=== PATIENT | female | born 1985 | race Caucasian/White ===

== ENCOUNTER 2019-08-11 16:24 | Inpatient (IN) | payer OTHER ==
[2019-08-11 16:46] LABS: Glucose,Whole Blood 132 mg/dL (75-99)
[2019-08-11] MEDS ORDERED: OXYTOCIN 10 UNIT/ML 1 ML VIAL IM PRN (17:28)
[2019-08-11] MEDS ORDERED: TERBUTALINE 1 MG/ML VIAL SQ PRN (17:28)
[2019-08-11] MEDS ORDERED: CARBOPROST TROMETHAMINE 250 MCG/ML 1 ML AMP IM PRN (17:28)
[2019-08-11] MEDS ORDERED: METHYLERGONOVINE 0.2 MG/ML 1 ML AMP IM PRN (17:28)
[2019-08-11] MEDS ORDERED: LIDOCAINE 0.5% (PF) 5 MG/ML (50 ML SDV) SQ PRN (17:28)
--- NOTE | 2019-08-11 17:28 | US ---
EXAMINATION TYPE: US OB >= 14 wk fetus DATE OF EXAM: 08/11/2019 COMPARISON: None CLINICAL HISTORY: DOM, no care, ? heart tones No care, unknown dates, ruptur e of membranes approx 2 days ago TECHNIQUE: Transabdominal (TA) GESTATIONAL AGE / DATING Physician Established: Not established Dates by LMP: Unknown Dates by First Scan: No prior Dates by Current Scan: (35 weeks/2 days) EDC: 09/13/2019 SURVEY IUP: Single PLACENTA: Fundal PREVIA: No Previa TYRON: 0.8 cm Oligohydramnios BIOMETRY PRESENTATION: Vertex BPD: 9.0 cm 36 weeks / 4 days HC: 31.4 cm 35 weeks / 2 days AC: 30.3 cm 34 weeks / 2 days FL: 7.1 cm 36 weeks / 2 days ESTIMATED WEIGHT IN GRAMS: 2605 grams ESTIMATED WEIGHT IN LBS/OZ: 5 lbs. 12 oz. HC/AC: 1.04 Normal FL/AC: 23 Normal HEART RATE: 149 bpm RHYTHM: Normal Very limited exam due to low TYRON and position. Dr. Keating present during exam IMPRESSION: The heart rate is 149. There is oligohydramnios. Limited exam. Cephalic presentation.
[2019-08-11] MEDS ORDERED: OXYTOCIN 30 UNITS/500 ML NS 30 UNIT in SALINE 1 500ML.BAG IV SCH (17:30)
[2019-08-11 17:37] LABS: Appearance,Urine Clear (Clear); Bilirubin,Urine Negative (Negative); Blood,Urine Negative (Negative); Color,Urine Yellow; Glucose,Urine (UA) 4+ (Negative); Leukocyte Esterase,Urine Negative (Negative); Mucus,Urine Rare /hpf; Nitrite,Urine Negative (Negative); PH, Urine 6.5 (5.0-8.0); Protein,Urine 1+ (Negative); RBC,Urine 1 /hpf (0-5); Specific Gravity,Urine 1.024 (1.001-1.035); Urobilinogen,Urine <2.0 mg/dL (<2.0); WBC,Urine 6 /hpf (0-5)
[2019-08-11 17:38] LABS: Ketones,Urine 2+ (Negative)
[2019-08-11 17:40] LABS: Amphetamine Screen,Urine Not Detected (NotDetected); Barbiturate Screen,Urine Not Detected (NotDetected); Benzodiazepines Screen,Urine Not Detected (NotDetected); Cocaine Screen,Urine Not Detected (NotDetected); Methadone Screen, Urine Not Detected (NotDetected); Opiate Screen,Urine Not Detected (NotDetected); Oxycodone Screen, Urine Not Detected (NotDetected); Phencyclidine Screen,Urine Not Detected (NotDetected); Tricyclic Antidepressant,Urine Not Detected (NotDetected); Urn Cannabinoid Scrn Not Detected (NotDetected)
--- NOTE | 2019-08-11 17:42 | P.HPOB ---
History of Present Illness H&P Date: 08/11/19 Chief Complaint: labor for 48 hours this is a 34-year-old 1 para 0 woman who presents at 39-5/7 weeks gestation reporting labor for the past 48 hours. She states she has a due date of 08/13/2019 based on a 6 week ultrasound. She is accompanied by her who has been attending her labor throughout the weekend. She had onset of irregular but strong contractions sometime on 08/09/2019. She reports a gush of fluid sometime in the evening of 08/09/2019. she has had some intermittent contractions however nothing over the last 1 Day therefore they decided to come into the hospital. She reports the fluid may be slightly green tinged at this time. She did attempt pushing at some point on Monday for a couple of hours but became exhausted and had no progress therefore stopped. She denies any vaginal bleeding. She had care early in the and 1 visit at 20 weeks and a high risk clinic at [facility]. She reports she is high risk secondary to type 1 diabetes. She has been treating herself with Humalog and Lantus insulin and reports her blood sugars are between 80 and 140 and her usual hemoglobin A1c prior to is 5.5. She has not checked her blood sugar nor has she had much to eat for the last 48 hours. Upon her initial evaluation her abdomen is noted to be gravid and misshapen. Heart tones are not obtained by external monitoring. Bedside ultrasound shows a grossly enlarged bladder, making initial visualization of infant's very difficult.. The patient reports that she last was able to empty her bladder over 24 hours ago. Latham catheter is placed and 2300 mL's of concentrated urine was rapidly obtained. With drainage of the bladder ultrasound confirms positive heart tones and an infant in the vertex presentation, head extremely low. Abdominal circumference and femur length measurements are consistent with 34-36 week gestation. There is no amniotic fluid and the placenta appears calcified in fundal position. Pelvic exam is performed and the patient is complete with the vertex in the +2 station. scalp electrode is placed with heart tones in the 150s to 160s with minimal variability and no decelerations. She is not actively el on the monitor. Other notable finding on physical exam is tense bilateral significant lower extremity edema. There is no erythema or asymmetry noted. She reports the swelling has been steadily increasing over the last several days. Other then type 1 diabetes she denies any significant other past medical or surgical history. She denies alcohol or drug use during the . 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. Review of Systems All systems: negative Medications and Allergies Allergies Allergy/AdvReac Type Severity Reaction Status Date / Time No Known Allergies Allergy Verified 08/11/19 16:38 Exam Intake and Output 08/11/19 08/11/19 08/11/19 06:59 14:59 22:59 Other: Weight 110.223 kg see HPI Results Abnormal Lab Results - Last 24 Hours (Table) 08/11/19 Range/Units 16:44 POC Glucose (mg/dL) 132 H (75-99) mg/dL Assessment and Plan (1) History of inadequate care Current Visit: Yes Status: Acute Code(s): O09.30 - SUPRVSN OF PREG W INSUFFICIENT ANTENAT CARE, UNSP TRIMESTER SNOMED Code(s): 528900532 (2) Prolonged rupture of membranes Current Visit: Yes Status: Acute Code(s): O42.90 - JOSE ROM, 7TH0 BETW RUPT & ONST LABR, UNSP WEEKS OF GEST SNOMED Code(s): 60824248 (3) Type 1 diabetes mellitus affecting , antepartum Current Visit: Yes Status: Acute Code(s): O24.019 - PRE-EXIST TYPE 1 DIABETES, IN , UNSP TRIMESTER SNOMED Code(s): 906033732 (4) Prolonged labor Current Visit: Yes Status: Acute Code(s): O63.9 - LONG LABOR, UNSPECIFIED SNOMED Code(s): 36858704 (5) Meconium in amniotic fluid Current Visit: Yes Status: Acute Code(s): P96.83 - MECONIUM STAINING SNOMED Code(s): 098192913 (6) Bladder distention Current Visit: Yes Status: Acute Code(s): N32.89 - OTHER SPECIFIED DISORDERS OF BLADDER SNOMED Code(s): 83530001 Plan: this is a 34-year-old 1 para 0 woman with a stated due date of 08/13/2019 who presents with greater than 48 hours in labor. It appears that she had the an obstructed bladder with inability to void. With Latham catheter she has greater than 2 L of urine out and the vertex is now in the 2+ station. Once IV access is established and the patient is transported to a labor room we will initiate Pitocin. Hopefully she will be able to have a spontaneous vaginal delivery. heart tones are category 2 at this time. The pediatric staff has been notified and will be in attendance for delivery. All labs are currently pending. The patient and her are counseled regarding distinct possibility of infection for both mother and infant, possibility of uterine atony and hemorrhage and probable admission into the special care nursery. All questions are answered.
[2019-08-11 17:48] LABS: Basophils % (A) 0 %; Eosinophils # (A) 0.1 k/uL (0-0.7); Eosinophils % (A) 0 %; HCT 35.6 % (34.0-46.0); HGB 12.2 gm/dL (11.4-16.0); Lymphocytes % (A) 4 %; MCH 28.7 pg (25.0-35.0); MCHC 34.3 g/dL (31.0-37.0); MCV 83.7 fL (80.0-100.0); Mean Platelet Volume 7.7; Monocytes # (A) 1.4 k/uL (0-1.0); Monocytes % (A) 6 %; Neutrophils % (A) 90 %; Platelet Count 340 k/uL (150-450); RBC 4.26 m/uL (3.80-5.40); WBC 24.5 k/uL (3.8-10.6)
[2019-08-11 17:58] LABS: Albumin 3.4 g/dL (3.5-5.0); Calcium 8.6 mg/dL (8.4-10.2); Potassium 4.5 mmol/L (3.5-5.1); Total Bilirubin 1.2 mg/dL (0.2-1.3); Total Protein 5.7 g/dL (6.3-8.2)
[2019-08-11] MEDS: LACTATED RINGERS 1,000 ML IV SCH ×3 (18:00→20:28)
[2019-08-11] MEDS ORDERED: MISOPROSTOL 200 MCG TAB RECTAL STA (18:02)
--- NOTE | 2019-08-11 19:31 | P.PROBDLV ---
Vaginal Delivery Note - . Vaginal Delivery Note: findings: Male in the vertex left occiput anterior position with Apgars of 5 at 1 minute and 9 at 5 minutes. Weight pending. Foul smelling purulent amniotic fluid at time of delivery. First-degree perineal laceration. Intact, meconium-stained placenta. EBL 250 mL's. Delivery summary: This is a 34-year-old 1 para 0 woman with an estimated due date of 08/13/2019 per her report who presents with no care since 20 weeks and having been in labor for greater than 48 hours, ruptured membranes for greater than 48 hours. Please see the admission history and physical for details. She had significant bladder distention and her bladder was drained for 2300 mL of concentrated orange urine while in triage. She was then on pelvic exam found to be completely dilated at the 2+ station. She was having no regular contraction activity however. heart tones were in the 150s with minimal variability but no decelerations. After some discussion about the situation the patient and the father of the baby agreed to Pitocin augmentation. Despite Pitocin augmentation ultimately up to 4 mU/m she maintained a very irregular and dispersed contraction pattern. She contracted every 7-10 minutes. With contractions she did have excellent maternal effort with pushing. Because of the prolonged labor, history of diabetes and dysfunctional contraction pattern additional staff were in the room prepared for possible shoulder dystocia. She eventually did push to and was placed in the Harini position. With additional maternal effort the head delivered from the left occiput anterior position with a compound presentation of the posterior hand by the head. There was a mild shoulder dystocia but this was relieved in the Harini position with delivery of the posterior arm. The rest the then rapidly delivered onto the field accompanied by a gush of foul-smelling brown fluid. The infant was immediately taken to the warmer after the cord was clamped and cut. Apgars were 5 at 1 minute and 9 at 5 minutes. The placenta was then delivered after a rapid third stage of labor and was noted to be meconium-stained. Cultures were taken from the placenta. Cord blood was taken as was a sample of the umbilical cord for gases. The perineum was inspected and a first-degree perineal laceration was noted. This was infused with lidocaine and repaired with a [id number] of 3-0 Vicryl suture. The uterus was massaged and initially was firm however she did develop some mild atony. This was managed with Pitocin intravenously as well as a single dose of IM Methergine. EBL was approximately 250 mL's. The was taken rapidly to the special care nursery accompanied by the father of the baby. Delivery and anticipated treatment course for the infant was reviewed with the patient at the bedside. All counts were correct.
[2019-08-11] MEDS ORDERED: HYDROCORTISONE 2.5% RECTAL CREAM 30 GM TUBE RECTAL PRN (19:37)
[2019-08-11] MEDS ORDERED: SIMETHICONE 80 MG CHEWABLE PO PRN (19:37)
[2019-08-11] MEDS ORDERED: WITCH HAZEL 1 EACH MED..PAD TOPICAL PRN (19:37)
[2019-08-11] MEDS ORDERED: ACETAMINOPHEN TAB 325 MG TAB PO PRN (19:37)
[2019-08-11] MEDS ORDERED: BENZOCAINE/MENTHOL SPRAY 1 GM/SPRAY AEROSOL TOPICAL PRN (19:37)
[2019-08-11] MEDS ORDERED: IBUPROFEN 600 MG TAB PO PRN (19:37)
[2019-08-11] MEDS ORDERED: ZOLPIDEM 5 MG TAB PO PRN (19:37)
[2019-08-11] MEDS ORDERED: diphenhydrAMINE 25 MG CAP PO PRN (19:37)
[2019-08-11] MEDS ORDERED: LANOLIN CREAM 5 GM TUBE TOPICAL PRN (19:37)
[2019-08-11] MEDS ORDERED: diphenhydrAMINE 50 MG/ML 1 ML VIAL IVP PRN ×2 (19:37)
[2019-08-11] MEDS ORDERED: diphenhydrAMINE 50 MG CAP PO PRN (19:37)
[2019-08-11] MEDS ORDERED: OXYTOCIN 20 UNITS/1000 ML NS 1,000 ML IV SCH (19:45)
[2019-08-11 20:10] LABS: Glucose,Whole Blood 139 mg/dL (75-99)
[2019-08-11] MEDS: SENNOSIDES-DOCUSATE SODIUM 1 EACH TAB PO SCH (20:29)
[2019-08-11] MEDS: INSULIN ASPART (NovoLOG) 100 UNIT/ML VIAL SQ SCH (21:07)
[2019-08-11 22:39] LABS: Glucose,Whole Blood 134 mg/dL (75-99)
[2019-08-12 06:10] LABS: Basophils % (A) 0 %; Eosinophils % (A) 0 %; HCT 32.9 % (34.0-46.0); HGB 11.7 gm/dL (11.4-16.0); Lymphocytes # (A) 1.4 k/uL (1.0-4.8); Lymphocytes % (A) 7 %; MCH 29.9 pg (25.0-35.0); MCHC 35.4 g/dL (31.0-37.0); MCV 84.5 fL (80.0-100.0); Mean Platelet Volume 7.9; Monocytes # (A) 1.3 k/uL (0-1.0); Monocytes % (A) 6 %; Neutrophils # (A) 18.4 k/uL (1.3-7.7); Neutrophils % (A) 86 %; Platelet Count 316 k/uL (150-450); WBC 21.4 k/uL (3.8-10.6)
[2019-08-12] MEDS: INSULIN ASPART (NovoLOG) 100 UNIT/ML VIAL SQ SCH ×4 (07:44→20:10)
[2019-08-12] MEDS: SENNOSIDES-DOCUSATE SODIUM 1 EACH TAB PO SCH ×2 (08:36→20:09)
--- NOTE | 2019-08-12 09:02 | P.PNOBGVD ---
Subjective - Subjective Principal diagnosis: day 1 Interval history: patient reports being incontinent of stool and urine overnight. She reports her bleeding is minimal. She refused IV antibiotics as well as nursing Accu-Cheks and insulin sliding scale. Her has been dosing her insulin as documented in the notes. They decline medical consult for diabetic management. The infant is resting comfortably on her chest and she declines exam. Patient reports: Denies voiding normally [place]: doing well Objective - Latest Vital Signs Latest vital signs: Vital Signs Temp Pulse Resp BP Pulse Ox 08/12/19 08:00 98.3 F 84 16 114/64 08/12/19 04:00 98.7 F 105 H 18 122/77 08/12/19 00:00 98.4 F 90 18 129/67 08/11/19 21:30 96.5 F L 86 18 135/68 08/11/19 21:15 97.7 F 87 18 133/69 97 08/11/19 20:45 97.4 F L 82 18 125/63 08/11/19 20:15 87 18 129/67 08/11/19 20:00 97.9 F 91 18 139/76 08/11/19 19:45 92 18 131/77 99 08/11/19 19:43 97.5 F L 92 18 131/77 99 08/11/19 19:30 97.5 F L 87 18 128/67 08/11/19 19:17 97.5 F L 95 18 129/67 99 Intake and Output 08/11/19 08/12/19 08/12/19 22:59 06:59 14:59 Intake Total 1550 50 Output Total 550 Balance 1550 -500 Intake: IV 1550 Lactated Ringers 1,000 ml 500 @ 125 mls/hr IV .Q8H SRAVANI Rx#:[id number] Oxytocin 20 Units/1000 ml 1000 Ns 1,000 ml @ Per Protocol IV .Q0M SRAVANI Rx#: [id number] ceFAZolin 2 gm In Sodium 50 Chloride 0.9% 50 ml @ 100 mls/hr IVPB Q8HR SRAVANI Rx# :[id number] Oral 50 Output: Urine 550 Other: # Voids 1 Weight 110.223 kg - Labs Labs: Abnormal Lab Results - Last 24 Hours (Table) 08/11/19 08/11/19 08/11/19 Range/Units 16:44 17:15 17:25 WBC (3.8-10.6) k/uL Hct (34.0-46.0) % Neutrophils # (1.3-7.7) k/uL Monocytes # (0-1.0) k/uL Sodium 113 L* (137-145) mmol/L Chloride 83 L (98-107) mmol/L Carbon Dioxide 19 L (22-30) mmol/L Glucose 115 H (74-99) mg/dL POC Glucose (mg/dL) 132 H (75-99) mg/dL AST 73 H (14-36) U/L ALT 41 H (4-34) U/L Alkaline Phosphatase 194 H (38-126) U/L Total Protein 5.7 L (6.3-8.2) g/dL Albumin 3.4 L (3.5-5.0) g/dL Urine Protein 1+ H (Negative) Urine Glucose (UA) 4+ H (Negative) Urine Ketones 2+ H (Negative) Urine WBC 6 H (0-5) /hpf Urine Mucus Rare H (None) /hpf 08/11/19 08/11/19 08/11/19 Range/Units 17:25 20:09 22:37 WBC 24.5 H (3.8-10.6) k/uL Hct (34.0-46.0) % Neutrophils # 22.0 H (1.3-7.7) k/uL Monocytes # 1.4 H (0-1.0) k/uL Sodium (137-145) mmol/L Chloride (98-107) mmol/L Carbon Dioxide (22-30) mmol/L Glucose (74-99) mg/dL POC Glucose (mg/dL) 139 H 134 H (75-99) mg/dL AST (14-36) U/L ALT (4-34) U/L Alkaline Phosphatase (38-126) U/L Total Protein (6.3-8.2) g/dL Albumin (3.5-5.0) g/dL Urine Protein (Negative) Urine Glucose (UA) (Negative) Urine Ketones (Negative) Urine WBC (0-5) /hpf Urine Mucus (None) /hpf 08/12/19 Range/Units 05:40 WBC 21.4 H (3.8-10.6) k/uL Hct 32.9 L (34.0-46.0) % Neutrophils # 18.4 H (1.3-7.7) k/uL Monocytes # 1.3 H (0-1.0) k/uL Sodium (137-145) mmol/L Chloride (98-107) mmol/L Carbon Dioxide (22-30) mmol/L Glucose (74-99) mg/dL POC Glucose (mg/dL) (75-99) mg/dL AST (14-36) U/L ALT (4-34) U/L Alkaline Phosphatase (38-126) U/L Total Protein (6.3-8.2) g/dL Albumin (3.5-5.0) g/dL Urine Protein (Negative) Urine Glucose (UA) (Negative) Urine Ketones (Negative) Urine WBC (0-5) /hpf Urine Mucus (None) /hpf Microbiology - Last 24 Hours (Table) 08/11/19 19:20 Gram Stain - Preliminary Placenta, Maternal Wound Culture - Preliminary 08/11/19 19:20 Anaerobic Culture - Preliminary Placenta, Maternal Assessment and Plan (1) History of inadequate care Current Visit: Yes Status: Acute Code(s): O09.30 - SUPRVSN OF PREG W INSUFFICIENT ANTENAT CARE, UNSP TRIMESTER SNOMED Code(s): 094666475 (2) Prolonged rupture of membranes Current Visit: Yes Status: Acute Code(s): O42.90 - JOSE ROM, 7TH0 BETW RUPT & ONST LABR, UNSP WEEKS OF GEST SNOMED Code(s): 37390779 (3) Type 1 diabetes mellitus affecting , antepartum Current Visit: Yes Status: Acute Code(s): O24.019 - PRE-EXIST TYPE 1 DIABETES, IN , UNSP TRIMESTER SNOMED Code(s): 222524806 (4) Prolonged labor Current Visit: Yes Status: Acute Code(s): O63.9 - LONG LABOR, UNSPECIFIED SNOMED Code(s): 66922952 (5) Meconium in amniotic fluid Current Visit: Yes Status: Acute Code(s): P96.83 - MECONIUM STAINING SNOMED Code(s): 488252510 (6) Bladder distention Current Visit: Yes Status: Acute Code(s): N32.89 - OTHER SPECIFIED DISORDERS OF BLADDER SNOMED Code(s): 35941626 (7) Perineal laceration with delivery, first degree Current Visit: Yes Status: Acute Code(s): O70.0 - FIRST DEGREE PERINEAL LACERATION DURING DELIVERY SNOMED Code(s): 887378937 (8) Normal spontaneous vaginal delivery Current Visit: Yes Status: Acute Code(s): O80 - ENCOUNTER FOR FULL-TERM UNCOMPLICATED DELIVERY SNOMED Code(s): 43452041 (9) Shoulder dystocia, delivered, current hospitalization Current Visit: Yes Status: Acute Code(s): O66.0 - OBSTRUCTED LABOR DUE TO SHOULDER DYSTOCIA SNOMED Code(s): 928615965 Plan: day 1 status post spontaneous vaginal delivery. The patient and her are refusing recommended maternal antibiotics for prolonged rupture of membranes, obstructed labor and elevated white blood cell count. There also declining diabetic management and her is checking her blood sugars and administering insulin at the bedside from their home insulin. I do not endorse this. She is reporting some incontinence and did have a significantly obstructed bladder with over 2 L of urine in the bladder when she presented. She declines further evaluation at this time.
[2019-08-12 11:36] LABS: HIV 1 AB Non-Reactive (Non-Reactive); HIV 2 AB Non-Reactive (Non-Reactive); HIV AB P24 Non-Reactive (Non-Reactive); HIV P24 AG Non-Reactive (Non-Reactive)
[2019-08-12 13:49] LABS: Hemoglobin A1C 5.7 % (4.0-6.0)
[2019-08-12 14:57] LABS: Hepatitis B Surface Antigen Non-Reactive (Non-Reactive)
--- NOTE | 2019-08-13 08:23 | P.DS ---
Providers Date of admission: 08/11/19 17:40 Expected date of discharge: 08/13/19 Attending physician: Rosi Keating Primary care physician: Stated None - Discharge Diagnosis(es) (1) History of inadequate care Current Visit: Yes Status: Acute (2) Prolonged rupture of membranes Current Visit: Yes Status: Acute (3) Type 1 diabetes mellitus affecting , antepartum Current Visit: Yes Status: Acute (4) Prolonged labor Current Visit: Yes Status: Acute (5) Meconium in amniotic fluid Current Visit: Yes Status: Acute (6) Bladder distention Current Visit: Yes Status: Acute (7) Perineal laceration with delivery, first degree Current Visit: Yes Status: Acute (8) Normal spontaneous vaginal delivery Current Visit: Yes Status: Acute (9) Shoulder dystocia, delivered, current hospitalization Current Visit: Yes Status: Acute Hospital Course: This is a 34-year-old 1 now para 1 woman who presented at stated gestational age of 39-5/7 weeks having reported being in labor with ruptured membranes for greater than 48 hours. Her had been managing her labor at home. They came into the hospital because her labor was not progressing. Please see the admission history and physical for complete details. Briefly, following the initial evaluation in labor and delivery triage she was found to have a grossly distended and obstructed bladder. Latham catheter was placed and greater than 2 L of urine was immediately obtained. At that time the infant was then found to be in the 2+ station with positive heart tones. The patient and her eventually did agree to Pitocin augmentation. She went on on to deliver a liveborn male over second-degree perineal laceration with a mild shoulder dystocia. Apgars were 5 at 1 minute and 9 at 5 minutes. The infant was initially evaluated in the special care nursery however was discharged to the room after several hours. The patient's course has been thankfully uncomplicated. She did report some incontinence of stool and urine on day #1 however reports that this is improving on day #2. She also reports minimal lochia although is struggling somewhat to breast-feed. She reports "the baby won't stop crying". The patient's past medical history is significant for reported type 1 diabetes for which her was managing her care. She [facility] Humalog [facility] Throughout her stay she has refused Accu-Cheks and insulin sliding scale as ordered. Her has been checking her blood sugars and administering insulin against our recommendation and without collaboration or oversight. She also has significant 3+ bilateral lower extremity edema. This is symmetric without pain, erythema or warmth. Her vital signs have been stable with normal blood pressures and very mild tachycardia. On admission she did have an elevated white blood cell count as well as electrolyte abnormalities however refused medical consultation for diabetic management or ongoing antibiotics or repeat labs. She has had a social services coordinator consult. She is discharged home on day #2 with recommendations for follow-up, precautions and instructions. Patient Condition at Discharge: Stable Plan - Discharge Summary New Discharge Prescriptions: No Action Insulin Glargine [Lantus] 0 unit SQ HS INSULIN LISPRO (humaLOG) [humaLOG] 0 units SQ DIRECTED Discharge Medication List INSULIN LISPRO (humaLOG) [humaLOG] 0 units SQ DIRECTED 08/11/19 [History] Insulin Glargine [Lantus] 0 unit SQ HS 08/11/19 [History] Follow up Appointment(s)/Referral(s): Rosi Keating MD [STAFF PHYSICIAN] - 2 Weeks Activity/Diet/Wound Care/Special Instructions: Follow-up in the office in 2 weeks . Call with any concerning signs or symptoms including heavy vaginal bleeding, severe abdominal pain, fever greater than 101, swelling or redness of the lower extremities, foul vaginal discharge, or signs of depression. Nothing in the vagina for 6 weeks after delivery, specifically no intercourse. Discharge Disposition: HOME SELF-CARE
[2019-08-13 21:48] LABS: Basophils # (A) 0.1 k/uL (0-0.2); Basophils % (A) 1 %; Eosinophils # (A) 0.1 k/uL (0-0.7); Eosinophils % (A) 1 %; HCT 34.1 % (34.0-46.0); HGB 11.2 gm/dL (11.4-16.0); Lymphocytes # (A) 1.5 k/uL (1.0-4.8); Lymphocytes % (A) 17 %; MCH 28.9 pg (25.0-35.0); MCHC 32.8 g/dL (31.0-37.0); MCV 88.1 fL (80.0-100.0); Mean Platelet Volume 7.5; Monocytes # (A) 0.5 k/uL (0-1.0); Monocytes % (A) 6 %; Neutrophils # (A) 6.8 k/uL (1.3-7.7); Neutrophils % (A) 74 %; Platelet Count 362 k/uL (150-450); RBC 3.87 m/uL (3.80-5.40); RDW 14.4 % (11.5-15.5); WBC 9.2 k/uL (3.8-10.6)
[2019-08-13 21:55] LABS: African American GFR (CKD) >90 (>60 ml/min/1.73 sqM); Blood Urea Nitrogen 8 mg/dL (7-17); Non-African American GFR(CKD) >90 (>60 ml/min/1.73 sqM)
[2019-08-13] MEDS: SENNOSIDES-DOCUSATE SODIUM 1 EACH TAB PO SCH (22:26)
[2019-08-13] MEDS: INSULIN ASPART (NovoLOG) 100 UNIT/ML VIAL SQ SCH (22:28)
[2019-08-13 23:58] VITALS: RESP 16
[2019-08-14] MEDS: SENNOSIDES-DOCUSATE SODIUM 1 EACH TAB PO SCH ×2 (07:55→07:59)
[2019-08-14] MEDS: INSULIN ASPART (NovoLOG) 100 UNIT/ML VIAL SQ SCH ×3 (07:56→13:11)
--- NOTE | 2019-08-14 08:06 | P.PN ---
Progress Note - Text Progress Note Date: 08/14/19 Patient had complaints of significant pelvic pressure late in the afternoon yesterday. She reported she has been on the bleeding however only small amounts. Bladder scan revealed large distended bladder and she had a catheterization for greater than 2000 mL was again. After a couple of hours she remained unable to spontaneously void and had again greater than 1000 mL's of urine in her bladder. A Latham catheter was therefore placed on throughout the night. It was removed this morning at 6 AM. She still saying she is unable to void more than a small amount this morning. In retrospect she believes she's had difficulty emptying her bladder for the last couple of weeks of however hasn't was been able to go a small amount. She denies any blood in the urine or pain with urination. CBC, BUN/creatinine normal this morning On exam the external genitalia appears normal with no bruising, edema or hematoma. First-degree laceration is well healing with intact sutures. The urethra appears normal, not swollen gaping or otherwise injured. The plan is stable for discharge home today with instruction on self- catheterization and plan for follow-up with urologist should bladder training and passage of time not resolve her symptoms in the next several days. The patient and her verbalized agreement with this plan. She is educated 2 attempts to empty her bladder spontaneously every 2-3 hours followed immediately by straight catheterization to completely empty the bladder. When the postvoid residuals are consistently less than 250 mL's and she feels as though she is noticing spontaneous urge to empty more normally she can discontinue self- catheterization.
[2019-08-14 08:41] VITALS: BP 124/73; PULSE 87; TEMP 98.3
== END 2019-08-14 14:05 | disposition home or self-care (01) | DRG 805 ==
LOC: FBPOP 16:24 → 4FBP 17:40
PROVIDERS: ADMIT Obstetrics & Gynecology; ATTEND Obstetrics & Gynecology
PROC: 10E0XZZ Delivery of Products of Conception, External Approach (ICD-10-PCS; principal; 2019-08-11)
PROC: 0KQM0ZZ Repair Perineum Muscle, Open Approach (ICD-10-PCS; principal; 2019-08-11)
DX: O42.92 Full-term premature rupture of membranes, unspecified as to length of time between rupture and onset of labor (principal); O24.02 Pre-existing type 1 diabetes mellitus, in childbirth; Z37.0 Single live birth; O32.6XX0 Maternal care for compound presentation, not applicable or unspecified; O77.0 Labor and delivery complicated by meconium in amniotic fluid; O66.0 Obstructed labor due to shoulder dystocia; Z3A.39 39 weeks gestation of pregnancy; Z53.20 Procedure and treatment not carried out because of patient's decision for unspecified reasons; Z79.4 Long term (current) use of insulin; O70.1 Second degree perineal laceration during delivery; E10.9 Type 1 diabetes mellitus without complications; N32.89 Other specified disorders of bladder
CPT/HCPCS: 76805; 80053; 80306; 81001; 82565; 82803; 83036; 84520; 85025; 86762; 86780; 86850; 86900; 86901; 87070; 87075; 87205; 87340; 87390; 88307; 99213